=== PATIENT | female | born 1980 | race Caucasian/White ===

== ENCOUNTER 2020-02-29 16:42 | Emergency (ER) | payer OTHER, SELFPAY ==
[2020-02-29 16:51] VITALS: BP 114/80; PULSE 87; RESP 16; TEMP 36.5; O2SAT 98
--- NOTE | 2020-02-29 17:26 | W.ED.GENAD ---
Discharge Plan Disposition Patient Disposition: HOME Condition: Stable Discharge Details Chief Complaint: Sorethroat Clinical Impression: Tonsillith Primary Care Provider: Unknown,Unknown ED Provider: Heather Espinosa Discharge Instructions Additional Instructions: Please return immediately to the emergency department if you develop any new or worsening symptoms, if your condition does not improve as expected, or if you become otherwise concerned. It is extremely important that you call soon as possible to make an appointment to be seen in follow-up for this visit by your primary care doctor and with an ear nose and throat doctor as we discussed. As you arrived to [place] from out of state 3 days ago, please continue to quarantine in your home for total of 14 days. Coronavirus testing has been ordered for you, after 7 days in [place] you may undergo coronavirus testing. If that test results as negative then you may end your quarantine prior to 14 days as per [facility] protocol. Please continue to quarantine until you have been notified of a negative cover test or until 14 days. Referrals: Scottie Garcia MD [ [facility] STAFF PHYSICIAN] - Discharge Data Discharge Date/Time-TO BE ENTERED AT DEPARTURE: 02/29/20 17:40 Medical Decision Making Debo Campbell is a 39 y/o woman who presented to the ED with concern for white spot on tonsil. On exam Pt is very well and non-toxic appearing. 2mm tonsilith left tonsil, otherwise normal exam of the oropharynx. Exam/hx not c/w peritonsilar abscess, retropharyngeal abscess, impending airway compromise; no acute emergent medical condition idenitified. Strep sent from triage neg. I had a lengthy discussion with Patient regarding return to emergency department precautions, home care, and importance of outpatient follow-up. Pt verbalizes understanding of the plan and is amenable. Patient discharged to home with clear plan for outpatient follow-up. All questions were answered. Disposition decision was made weighing the risks and benefits of hospitalization versus outpatient treatment, the risk for further decompensation, and the patient's wishes. Pt placed on care management list for PCP f/u. Medical Records Medical records reviewed: Yes I reviewed the patient's medical records. HPI General Mode of arrival: ambulatory. Date/Time Provider Initiated Documentation: 02/29/20 16:54. Limitations to Documentation: no limitations. Information obtained by: patient, RN notes reviewed and old records reviewed. HPI Narrative: Debo Campbell is a 39 y/o woman without reported h/o medical problems presenting to the emergency department with white spot on her tonsil. Pt reports that this am she noticed a white spot on her tonsil. She tried to scrape it off, but tonsil started to bleed and so she stopped. Pt reports that she came to the ED because she is from [place] and has no PCP here. She reports small amt of bleeding stat stopped within 1 minute. She denies any pain, difficulty swallowing, fever, SOB, rash, vomiting, diarrhea. No trauma, no recent illness, has been eating and drinking as usual. Related Data Allergies Allergy/AdvReac Type Severity Reaction Status Date / Time amoxicillin AdvReac yeast Unverified 02/29/20 16:59 infection General Stated Complaint: Sorethroat LUCILLE: 4 Review of Systems Narrative: Constitutional: denies fevers Eyes: denies eye pain ENT: denies ear pain, dental pain, sore throat Cardiovascular: denies chest pain Respiratory: denies SOB, cough GI: denies abdominal pain, vomiting, diarrhea : denies flank pain MSK: denies back pain, neck pain, arthralgias, myalgias Skin: denies rash Neuro: denies headaches, numbness, weakness PFS Surgical History (Updated 05/19/18 @ 14:34 by [employer]) section x 2 Oophrectomy, Right (01/04/14) 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 KK Social History Smoking/Tobacco Use Status: Current every day Tobacco Type: cigarettes Alcohol Intake: never Drug use: Never Do you feel safe at home: Yes Do you feel safe in your relationship?: Yes Exam Narrative Exam Narrative: Constitutional: well and [id number], pleasant, conversing normally HENT: head atraumatic/normocephalic/normal inspection, mucous membranes moist, normal posterior pharynx, no tonsillar edema/erythema/bleeding, left tonsil with 2mm tonsilith, uvula midline, no other intraoral abnormality Eyes: conjunctiva normal, sclera normal, pupils 3mm b/l Neck: no stridor, normal ROM, trachea midline Chest: normal inspection Resp: normal work of breathing Cardio: normal rate, normal rhythm Skin: warm, dry, normal color, no rash Neuro: alert, not altered, grossly non-focal, normal tone Ext: no edema Psych: normal mood, normal affect, normal behavior Course Vital Signs Vital signs: Vital Signs Temperature 36.5 C 02/29/20 16:51 Pulse 87 02/29/20 16:51 Respiratory Rate 16 02/29/20 16:51 Blood Pressure 114/80 02/29/20 16:51 Pulse Oximetry 98 02/29/20 16:51 Temperature 36.5 C 02/29/20 16:51 Temperature Source Temporal Artery Scan 02/29/20 16:51 Pulse 87 02/29/20 16:51 Respiratory Rate 16 02/29/20 16:51 Respiratory Effort Non-Labored 02/29/20 16:58 Blood Pressure 114/80 02/29/20 16:51 Blood Pressure Position Sitting 02/29/20 16:51 Pulse Oximetry 98 02/29/20 16:51 Oxygen Delivery Method Room Air 02/29/20 16:51 Oxygen Flow Rate 0 02/29/20 16:51 Pain Level 0 02/29/20 16:51 Lab/Test Results Lab/Test Results: 02/29/20 16:48 Pharynx Streptococcus Screen (ZOEY) - Pending POC Strep Test-JO(Rapid) Start: 02/29/20 16:58 Freq: .Rapid Strep Test Status: Active Protocol: Document 02/29/20 16:59 (Rec: 02/29/20 16:59 [id number]) Strep test-JO(Rapid)-POC POC-Strep test-JO (Rapid) Negative POC-Strep test-JO (Rapid) Negative
== END 2020-02-29 17:40 | disposition home or self-care (01) ==
PROVIDERS: Emergency Provider Student in an Organized Health Care Education/Training Program
DX: J35.8 Other chronic diseases of tonsils and adenoids (principal); F17.210 Nicotine dependence, cigarettes, uncomplicated
CPT/HCPCS: 87880; 99282; 87081; 99283

== ENCOUNTER 2020-03-02 09:13 | Outpatient (CLI) | payer OTHER, SELFPAY ==
[2020-03-05 18:14] LABS: SARS-CoV-2 RNA Undetected (Undetected); SARS-CoV-2 Specimen Source Nasopharynx
== END 2020-03-02 09:33 ==
PROVIDERS: Visit Provider Student in an Organized Health Care Education/Training Program
DX: Z11.59 Encounter for screening for other viral diseases (principal)
CPT/HCPCS: U0003